=== PATIENT | female | born 1985 | race Caucasian/White ===

== ENCOUNTER 2016-10-30 05:11 | Inpatient (IN) | payer BC ==
[2016-10-30] VITALS (15 sets, daily range): BP systolic 92–121; RESP 14–26; TEMP 98.2–101.9; Ht 152.4 cm; Wt 82.1 kg
[~2016-10-30] VITALS: Ht 152.4 cm; Wt 82.1 kg
[2016-10-30] MEDS ORDERED: SODIUM CHLORIDE 0.45% 1,000 ML IV SCH (08:10)
[2016-10-30] MEDS ORDERED: ONDANSETRON 4 MG VIAL IV PUSH PRN (08:20)
[2016-10-30] MEDS ORDERED: LIDOCAINE 1% BUFFERED 1 ML SYR INTRADERM PRN (08:25)
[2016-10-30] MEDS ORDERED: MIDAZOLAM 2 MG/2 ML INJ IV ONE (08:25)
[2016-10-30] MEDS ORDERED: SCOPOLAMINE PATCH TRANSDERM ONE (08:25)
[2016-10-30] MEDS ORDERED: ONDANSETRON 4 MG VIAL IV ONE (08:25)
[2016-10-30] MEDS ORDERED: GLYCOPYRROLATE 0.2 MG/ML VIAL IV ONE (08:25)
[2016-10-30] MEDS ORDERED: LACT RINGERS 1,000 ML IV SCH (08:25)
[2016-10-30] MEDS: DILAUDID 1 MG/ML AMP IV PRN ×2 (08:28→10:55)
[2016-10-30] MEDS ORDERED: ACETAMINOPHEN 1,000 MG/100 ML IV ONE (10:16)
[2016-10-30] MEDS ORDERED: KETAMINE INJ 50 MG/ML VIAL IV ONE (10:16)
[2016-10-30] MEDS ORDERED: PROPOFOL 50ML PER ML IV ONE (10:16)
[2016-10-30] MEDS ORDERED: LIDOCAINE 2% SYR 5 ML IV ONE (10:16)
[2016-10-30] MEDS ORDERED: CEFTRIAXONE 1 GM in SODIUM CHLORIDE 0.9% 50 ML IV ONE (11:15)
[2016-10-30] MEDS ORDERED: OXYCODONE 5 MG TAB PO PRN ×3 (13:15→13:45)
[2016-10-30] MEDS ORDERED: MEPERIDINE 25 MG/ML IV PRN (13:15)
[2016-10-30] MEDS ORDERED: MORPHINE 2 MG/ML SYR IV PRN (13:15)
[2016-10-30] MEDS ORDERED: ONDANSETRON 4 MG VIAL IV PRN ×2 (13:15→13:45)
[2016-10-30] MEDS ORDERED: DILAUDID 1 MG/ML AMP IV PRN ×2 (13:15→13:45)
[2016-10-30] MEDS ORDERED: MORPHINE 4 MG/ML SYR IV PRN (13:15)
[2016-10-30] MEDS ORDERED: ACETAMINOPHEN 325 MG TAB PO PRN (13:45)
[2016-10-30] MEDS: SODIUM CHLORIDE 0.45% 1,000 ML IV SCH (15:49)
[2016-10-30] MEDS: PHENAZOPYRIDINE 100 MG TAB PO SCH ×2 (16:44→20:36)
[2016-10-31] MEDS: SODIUM CHLORIDE 0.45% 1,000 ML IV SCH (02:19)
[2016-10-31] MEDS: ACETAMINOPHEN 325 MG TAB PO PRN ×4 (02:39→21:03)
[2016-10-31 03:33] VITALS: BP_SYST 90; RESP 16; TEMP 98.2
[2016-10-31 07:43] VITALS: BP_SYST 96; RESP 16; TEMP 98.3
[2016-10-31] MEDS: PHENAZOPYRIDINE 100 MG TAB PO SCH ×3 (09:07→21:04)
[2016-10-31] MEDS: CEFTRIAXONE 1 GM in SODIUM CHLORIDE 0.9% 50 ML IV SCH (09:07)
[2016-10-31 11:26] VITALS: BP_SYST 114; RESP 16; TEMP 98.3
[2016-10-31 15:26] VITALS: BP_SYST 110; RESP 16; TEMP 98.2
[2016-10-31 19:53] VITALS: BP_SYST 129; RESP 16; TEMP 98
[2016-10-31 23:27] VITALS: BP_SYST 108; RESP 16; TEMP 98.1
[2016-11-01] VITALS (7 sets, daily range): BP systolic 105–138; RESP 16; TEMP 98.2–98.8
[2016-11-01] MEDS: SODIUM CHLORIDE 0.45% 1,000 ML IV SCH (05:30)
[2016-11-01] MEDS: CEFTRIAXONE 1 GM in SODIUM CHLORIDE 0.9% 50 ML IV SCH (08:37)
[2016-11-01] MEDS: PHENAZOPYRIDINE 100 MG TAB PO SCH (08:37)
[2016-11-02 03:36] VITALS: BP_SYST 124; RESP 16; TEMP 98.7
[2016-11-02 07:53] VITALS: BP_SYST 126; RESP 16; TEMP 98.1
[2016-11-02] MEDS ORDERED: REMOVE SCOPALAMINE PATCH XX ONE (08:25)
[2016-11-02] MEDS: CEFTRIAXONE 1 GM in SODIUM CHLORIDE 0.9% 50 ML IV SCH (08:34)
[2016-11-02 11:53] VITALS: BP_SYST 126; RESP 16; TEMP 98.1
== END 2016-11-02 12:49 | disposition home or self-care (01) | DRG 854 ==
LOC: 5THW 07:13 → OBSVTOIN 13:41 → INTOOBSV 13:41
PROVIDERS: ADMIT Urology; ATTEND Urology
PROC: 0T7B8DZ Dilation of Bladder with Intraluminal Device, Via Natural or Artificial Opening Endoscopic (ICD-10-PCS; principal; 2016-10-30 13:07)
PROC: BT1DZZZ Fluoroscopy of Right Kidney, Ureter and Bladder (ICD-10-PCS; 2016-10-30 13:07)
DX: A41.9 Sepsis, unspecified organism (principal); N13.6 Pyonephrosis; B96.20 Unspecified Escherichia coli [E. coli] as the cause of diseases classified elsewhere
CPT/HCPCS: 74000; 74420; 80048; 80053; 81001; 84145; 84702; 85025; 87040; 87088